=== PATIENT | male | born 1955 | race Caucasian/White ===

== ENCOUNTER → 2019-05-01 10:06 | Outpatient (CLI) | payer SELFPAY ==
[2019-05-01 12:33] LABS: Vitamin B12 576 pg/mL (211-911); Vitamin D,25 Hydroxy 34.2 ng/mL (29.95-100.01)
[2019-05-01 12:38] LABS: Iron 68 ug/dL (65-175); PSA,Total - Annual Screen 1.11 ng/mL (0.00-4.00)
== END ==
PROVIDERS: Visit Provider Family Medicine
DX: Z78.9 Other specified health status (principal); Z12.5 Encounter for screening for malignant neoplasm of prostate
CPT/HCPCS: 36415; 82306; 82607; 83540; 84153; G0103